=== PATIENT | male | born 1995 | race Native Hawaiian/Other Pacific Islander ===

== ENCOUNTER 2021-03-12 13:39 | Emergency (ER) | payer SELFPAY ==
[~2021-03-12] VITALS: Ht 175.3 cm; Wt 118.2 kg
[2021-03-12 14:05] VITALS: BP 142/92; PULSE 88; TEMP 98.8
[2021-03-12] MEDS ORDERED: NORCO 325 MG-51 TAB PO (16:10)
[2021-03-13] MEDS ORDERED: NORCO 325 MG-51 TAB PO (09:48)
== END 2021-03-12 17:27 | disposition home or self-care (01) ==
LOC: COL.ER 13:39
DX: S52.022A Displaced fracture of olecranon process without intraarticular extension of left ulna, initial encounter for closed fracture (principal); S00.531A Contusion of lip, initial encounter; S80.212A Abrasion, left knee, initial encounter; S80.211A Abrasion, right knee, initial encounter; F17.210 Nicotine dependence, cigarettes, uncomplicated; W11.XXXA Fall on and from ladder, initial encounter; Y99.0 Civilian activity done for income or pay